=== PATIENT | female | born 1965 | race Caucasian/White ===

== ENCOUNTER 2021-06-20 07:32 | Day surgery (SDC) | payer OTHER ==
[~2021-06-20] VITALS: Ht 157.5 cm; Wt 74.9 kg
[~2021-06-20 07:32] MED LIST: AIMOVIG AU140 MG/1 M SC; Advil200 M1 PO; ESTRADIOL1 EAC2 TOP; EUTHYROX125 MCG PO; FIORINAL PO; GABA300 PO; HYDCHL25 PO; Inderal 20 mg T20 MG PO; Multiple Vitam1 EACH PO
--- NOTE | 2021-06-20 13:21 | NUR ---
PT ARRIVED FROM PACU TO THE ROOM AT 1305. SHE IS ALERT, ORIENTED AND PLEASANT. PT REPORTS PAIN AT 3/10 BUT STATES IT IS TOLERABLE. WILL CONTINUE TO MONITOR.
--- NOTE | 2021-06-20 15:55 | NUR ---
SHIFT SUMMARY PT IS POD#0 FROM [facility]. SHE HAS WORKED WITH THERAPY X1 AND IS A 1 ASSIST WITH GAIT BELT AND WALKER WHEN OOB. PAIN MANAGED WITH NORCO. SHE IS TOLERATING PO. REPORTS PAIN IS TOLERABLE AT 3/10. WILL CONTINUE TO MONITOR.
[2021-06-21 05:42] LABS: Anion Gap 9 mmol/L (6-16); BASOPHILS ABSOLUTE AUTO 0.01 K/mm3 (0.00-0.23); BASOPHILS PERCENT AUTO 0 % (0-2); Blood Urea Nitrogen 16 mg/dL (8-24); Bun/Creatinine Ratio 22.6 (12.0-20.0); CO2, Blood 26 mmol/L (21-32); Calcium, Blood 7.6 mg/dL (8.5-10.1); Chloride, Blood 101 mmol/L (98-108); Creatinine, Blood 0.71 mg/dL (0.40-1.00); EOSINOPHILS ABSOLUTE AUTO 0.03 K/mm3 (0.00-0.68); EOSINOPHILS PERCENT AUTO 0 % (0-6); Glomerular Filtration Rate >60 (60-); Glucose, Blood 101 mg/dL (70-99); Hematocrit 31.2 % (33.0-51.0); Hemoglobin 10.8 g/dL (11.5-16.0); IMMATURE GRAN ABSOLUTE AUTO 0.03 K/mm3 (0.00-0.10); IMMATURE GRAN PERCENT AUTO 0 % (0-1); LYMPHOCYTES PERCENT AUTO 16 % (21-46); MONOCYTES ABSOLUTE AUTO 0.52 K/mm3 (0.16-1.47); MONOCYTES PERCENT AUTO 6 % (4-13); Magnesium, Blood 1.4 mg/dL (1.6-2.4); Mean Corpuscular HGB 32.3 pg (26.0-34.0); Mean Corpuscular HGB Conc 34.6 g/dL (31.5-36.5); Mean Corpuscular Volume 93 fL (80-100); NEUTROPHILS ABSOLUTE AUTO 6.23 K/mm3 (1.96-9.15); NEUTROPHILS PERCENT AUTO 77 % (41-73); Potassium, Blood 3.5 mmol/L (3.5-5.5); RDW Coefficient Variation 12.1 % (11.7-14.2); RDW Standard Deviation 41.9 fL (35.1-46.3); Red Blood Cell Count 3.34 M/mm3 (3.80-5.20); Sodium, Blood 136 mmol/L (136-145); White Blood Cell Count 8.12 K/mm3 (4.00-11.30)
[2021-06-21 05:52] LABS: Mean Platelet Volume 10.5 fL (9.1-12.4); Platelet Count 168 K/mm3 (150-400)
--- NOTE | 2021-06-21 06:46 | NUR ---
SUMMARY PT AMBULATORY WITH WALKER SBA.CIRC CKS INTACT.PAIN CONTROLLED.DRESSINGS D/I TOLERATING PO.
[2021-06-21] MEDS ORDERED: ENOX40I SC (09:11)
[2021-06-21] MEDS ORDERED: Norco 7.5-3251 EACH PO (09:12)
[2021-06-21] MEDS ORDERED: PROM12.5S PO (09:13)
--- NOTE | 2021-06-21 12:23 | NUR ---
DC'D HOME THIS AM, PT DC'D W/ SPOUSE, DC INSTRUCTIONS GIVEN, VERBALIZED UNDERSTANDING, IV DC'D, CATH INTACT.
== END 2021-06-21 12:24 | disposition home or self-care (01) ==
LOC: ORSCMMR 07:32 → SURS 12:56 → ORSCMMR 06-21 12:24
PROVIDERS: Orthopaedic Surgery
PROC: 8E0YXBZ Computer Assisted Procedure of Lower Extremity (ICD-10-PCS; principal; 2021-06-20 09:00)
PROC: 0SRB0JA Replacement of Left Hip Joint with Synthetic Substitute, Uncemented, Open Approach (ICD-10-PCS; principal; 2021-06-20 09:00)
DX: M16.12 Unilateral primary osteoarthritis, left hip (principal); I10 Essential (primary) hypertension; E03.9 Hypothyroidism, unspecified; I50.9 Heart failure, unspecified; Z79.899 Other long term (current) drug therapy
CPT/HCPCS: 36415; 72170; 80048; 83735; 85025; 97110; 97110-CQ; 97116; 97116-CQ; 97162; 97165; 97530-CQ; 97535; A9270; C1713; C1776; J0171; J0690; J0735; J1100; J1170; J1650; J1885; J2250; J2370; J2405; J2704; J2765; J2795; J3010; J3370; J3475; J7050; J7120

== ENCOUNTER 2024-06-10 07:48 | Day surgery (SDC) | payer OTHER ==
[~2024-06-10] VITALS: Ht 160 cm; Wt 74.8 kg
[~2024-06-10 07:48] MED LIST changes: +ENOX40I SC; +Lactated Ringer's 1,000 ML IV ONE; +Norco 7.5-3251 EACH PO; +PROM12.5S PO; +propofoL 50 ML IV ONE
[2024-06-10] MEDS ORDERED: AMIT25 (08:29)
[2024-06-10] MEDS ORDERED: DOTTI1 EA19 (08:29)
[2024-06-10] MEDS ORDERED: GEMF600 (08:29)
[2024-06-10] MEDS ORDERED: BUTALBITAL-ASA1 EACH (08:30)
[2024-06-10] MEDS ORDERED: NURTEC ODT75 MG (08:30)
[2024-06-10] MEDS ORDERED: Lactated Ringer's 1,000 ML IV ONE (09:33)
[2024-06-10 10:44] VITALS: BP 118/97
== END 2024-06-10 10:45 | disposition home or self-care (01) ==
LOC: ORSCSDS 07:48
PROVIDERS: Internal Medicine Gastroenterology
PROC: 0DJD8ZZ Inspection of Lower Intestinal Tract, Via Natural or Artificial Opening Endoscopic (ICD-10-PCS; principal; 2024-06-10 09:15)
DX: Z12.11 Encounter for screening for malignant neoplasm of colon (principal); Z86.0100 Personal history of colon polyps, unspecified; Z85.850 Personal history of malignant neoplasm of thyroid; Z79.899 Other long term (current) drug therapy
CPT/HCPCS: J2704; J7120